=== PATIENT | male | born 2005 | race Hispanic/Latino ===

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

== ENCOUNTER 2025-08-10 15:50 | Emergency (ER) | payer OTHER, SELFPAY | END 2025-08-10 17:39 | disposition home or self-care (01) | LOC: ERS 15:50 | DX: K64.9 Unspecified hemorrhoids (principal) | CPT/HCPCS: 99282 ==